=== PATIENT | female | born 1985 ===

== ENCOUNTER 2022-01-03 19:50 | Emergency (ER) | payer SELFPAY ==
[~2022-01-03] VITALS: Ht 162.6 cm; Wt 81.8 kg
[2022-01-03 22:32] VITALS: BP 120/89
== END 2022-01-03 22:48 | disposition home or self-care (01) ==
LOC: EMS 19:53
DX: M26.601 Right temporomandibular joint disorder, unspecified (principal); K13.79 Other lesions of oral mucosa
CPT/HCPCS: 99283; Z7502